=== PATIENT | female | born 1995 | race African-American/Black ===

== ENCOUNTER 2016-12-07 21:04 | Emergency (ER) | payer OTHER ==
[~2016-12-07] VITALS: Ht 154.9 cm; Wt 59.0 kg
[2016-12-07 22:35] LABS: Basophils # (auto) 0 uL; Basophils % (auto) 0.1 % (0.0-2.0); Eosinophils # (auto) 0 uL; Hematocrit 43.9 % (36.0-46.0); Hemoglobin 14.4 g/dL (12.2-16.2); Lymphocytes # (auto) 0.8 uL; Lymphocytes % (auto) 6.2 % (10.0-50.0); Mean Corpuscular Hgb Conc. 32.8 g/dL (32.0-36.0); Mean Corpuscular Volume 88.5 fL (80.0-100.0); Mean Platelet Volume 8.7 fL (7.4-10.4); Monocytes # (auto) 0.8 uL; Monocytes % (auto) 5.7 % (0.0-12.0); Neutrophils # (auto) 11.6 uL; Platelet Count (auto) 267 10^3/uL (140-450); Red Cell Distribution Width 13.9 % (11.6-16.0); White Blood Cell 13.2 10^3/uL (4.4-10.8)
[2016-12-07 22:49] LABS: Urine Bilirubin Negative (Negative); Urine Blood 2+ /uL (Negative); Urine Color Yellow (Yellow); Urine Glucose Normal (Normal); Urine Ketone Negative (Negative); Urine Mucus FEW (None Seen); Urine Nitrite POSITIVE (Negative); Urine RBC 8 /hpf (0 - 4); Urine Squamous Epithelial Cell FEW /hpf (<5); Urine Urobilinogen Normal (Negative); Urine WBC Clumps PRESENT /hpf (None Seen)
[2016-12-07 23:02] LABS: Albumin 4.2 g/dL (3.4-5.0); BUN/Creatinine Ratio 10.6; Bilirubin, Total 0.8 mg/dL (0.2-1.0); Calcium 9.3 mg/dL (8.5-10.1); Total Protein 8.7 g/dL (6.4-8.2)
[2016-12-08] MEDS ORDERED: LEVOFLOXACIN 500MG 100 ML IV ONE (01:15)
[2016-12-08] MEDS ORDERED: cefTRIAXone 1GM/50ML D5W 50 ML IV ONE ×2 (01:15)
[2016-12-08] MEDS ORDERED: NALBUPHINE HCL 10 MG/1ml INJECTION IV ONE (01:15)
[2016-12-08] MEDS ORDERED: CLINDAMYCIN 300MG IV 50 ML IV ONE (01:15)
[2016-12-08] MEDS ORDERED: ACETAMINOPHEN 325 MG TAB PO ONE (01:15)
[2016-12-08] MEDS ORDERED: SODIUM CHLORIDE 0.9% 1,000 ML IV ONE (01:15)
[2016-12-08 01:52] LABS: Lactic Acid w/Reflex 2.2 mmol/L (0.4-2.0)
[2016-12-08 02:23] LABS: REFLEX LACTIC ACID YES OR NO YES
[2016-12-08 04:10] VITALS: BP 106/69
== END 2016-12-08 02:18 | disposition home or self-care (01) ==
LOC: ER 21:16
DX: N39.0 Urinary tract infection, site not specified (principal)
CPT/HCPCS: 36415; 74176; 80053; 81001; 81025; 83605; 85025; 87040; 96365; 96367; 99285; J0696; J1956; J7030